=== PATIENT | male | born 1970 | race Caucasian/White ===

== ENCOUNTER 2023-06-15 08:24 | Outpatient (OUT) | payer OTHER, SELFPAY ==
--- NOTE | 2023-06-15 08:40 | XR_ITS ---
[place] [id number] Patient Name: BRIAN CISNEROS MRN: [id number] date: 1970 Sex: M Assigned Patient Location: [facility] Current Patient Location: [facility] Accession/Order Number: [id number] Exam Date: 06/15/2023 08:45 Report Date: 06/15/2023 14:40 At the request of: JUANIS VALE Procedure: XR shoulder RT min 2V STUDY: XR shoulder RT min 2V, [id number] HISTORY: Right Shoulder Pain COMPARISON: None FINDINGS: No acute fracture, dislocation, or suspicious osseous lesion. Mild osteophytosis of the acromioclavicular joint. No significant degenerative changes of the glenohumeral joint. No abnormal soft tissue calcifications. XR/XR shoulder RT min 2V IMPRESSION: 1. No acute osseous abnormality. 2. Mild osteoarthritis of the AC joint. Electronically authenticated by: SUZIE ALVAREZ Date: 06/15/2023 14:40
== END 2023-06-15 08:25 | disposition home or self-care (01) ==
LOC: RAD 08:30
PROVIDERS: Visit Provider Orthopaedic Surgery
DX: M25.511 Pain in right shoulder (principal)
CPT/HCPCS: 73030